=== PATIENT | male | born 1950 | race Caucasian/White ===

== ENCOUNTER 2016-08-15 10:40 | Emergency (ER) | payer OTHER ==
[2016-08-15] MEDS ORDERED: HYDROmorphone HCL/PF 1 MG/ML DISP.SYRIN ONE (10:51)
[2016-08-15] MEDS: ASPIRIN 81 MG CHEW TAB PO ONE (11:05)
[2016-08-15] MEDS: HYDROmorphone HCL/PF 1 MG/ML DISP.SYRIN IVP ONE ×2 (11:05→12:43)
[2016-08-15 11:09] LABS: BASOPHILS % 0.4 (0.0-1.5); EOSINOPHILS % 2.1 % (0.0-6.8); LYMPHOCYTES # 1.6 # k/uL (0.6-4.0); MEAN CORPUSCULAR HEMOGLOBIN 30.9 pg (28.0-34.0); MONOCYTES # 0.3 # k/uL (0.0-0.9); NEUTROPHILS # 4.8 # k/uL (1.4-7.7)
[2016-08-15 11:22] LABS: eGFR (African) > 60; eGFR (Non-African) > 60
--- NOTE | 2016-08-15 12:52 | ED Physician Documentation ---
Chest Pain - HISTORIAN Historian: patient - HPI Stated Complaint: Reproducible Chest Pain Chief Complaint: Chest Pain Additional Information: huts to inspire, move, eminates from mid back Onset: days ago (7) Timing: sudden onset, still present Duration: constant Last known Well Date: 08/09/16 Last Known Well Time: 12:00 Context: other (constatnt) Severity: severe Quality: sharp Front/Back of Body, Lg (Color): 1 - pain 2 - pain Chest Pain Radiation: back Chest Pain Signs/Symptoms: denies: nausea, vomiting, diaphoresis, cool extremities, dizziness, dyspnea, tachypnea, tachycardia, hypotension, palpitations, weakness Worsened By: deep breaths, exertion Relieved By: nothing Further Comments: no - ROS CONST: none MS/LYMPH: none GI/: none EYES/ENT: none SKIN/ENDO: none NEURO/PSYCH: none - PAST HX [place] risk factors: hypertension, hyperlipidemia, other (heart disease) TAD/AAA risk factors: none Neuro deficit: none GI disease: none Lung disease: none Surgeries/Procedures: cholecysectomy Immunizations: referred to PCP Allergies/Adverse Reactions: Allergies Allergy/AdvReac Type Severity Reaction Status Date / Time No Known Allergies Allergy Verified 08/15/16 10:47 Home Medications: Ambulatory Orders Medication Instructions Recorded Amitriptyline HCl 50 mg PO HS 08/15/16 Cholecalciferol [Vitamin D-3] 1,000 unit PO DAILY 08/15/16 Gemfibrozil [Lopid] 300 mg PO BID 08/15/16 Lisinopril [Zestril] 40 mg PO DAILY 08/15/16 Metformin HCl [Metformin HCl ER] 1,000 mg PO BID 08/15/16 Naproxen [Naprosyn] 500 mg PO BID PRN 08/15/16 [place]-3 Fatty Acids/Fish Oil [Ra 1 cap PO DAILY 08/15/16 Fish Oil 1,000 mg Softgel] Omeprazole [Prilosec] 20 mg PO AM 08/15/16 Pregabalin [Lyrica] 225 mg PO BID 03/09/17 amLODIPine BESYLATE [Norvasc] 5 mg PO 0900 08/15/16 gliPIZIDE [Glucotrol] 10 mg PO BID 08/15/16 - SOCIAL HX Smoking History: non-smoker Alcohol Use: none Drug Use: none - FAMILY HX Family HX: none - VITAL SIGNS Vital Signs: Vital Signs Temp Pulse Resp BP Pulse Ox 98.1 F 88 26 H 155/84 99 08/15/16 10:40 08/15/16 11:31 08/15/16 10:40 08/15/16 10:40 08/15/16 11:31 - REVIEWED ASSESSMENTS Nursing Assessment Reviewed: Yes Vitals Reviewed: Yes Progress - Results/Orders Results/Orders: chest pain workup ordered - Progress Progress: pt. given dilaudid 1 mg ivp x 2 each time with resolution of pain Critical Care Note - Critical Care Note Total Time (mins): 0 ED Results Lab/Radiology - Lab Results Lab Results: Lab Results 08/15/16 08/15/16 08/15/16 11:05 11:05 11:05 WBC 7.00 K/ul K/ul (4.00-12.00) RBC 4.55 M/ul M/ul (3.90-5.20) Hgb 14.0 g/dL g/dL (12.0-18.0) Hct 40.9 % % (37.0-53.0) MCV 90.0 fl fl (80.0-100.0) MCH 30.9 pg pg (28.0-34.0) MCHC 34.3 g/dL g/dL (30.0-36.0) RDW 13.7 % % (11.3-14.3) Plt Count 131 K/mm3 K/mm3 (130-400) Neut % (Auto) 69.7 % % (39.0-79.0) Lymph % (Auto) 22.7 % % (16.0-50.0) [place] % (Auto) 4.0 % % (0.0-11.0) Eos % (Auto) 2.1 % % (0.0-6.8) Baso % (Auto) 0.4 (0.0-1.5) Neut # 4.8 # k/uL # k/uL (1.4-7.7) Lymph # 1.6 # k/uL # k/uL (0.6-4.0) [place] # 0.3 # k/uL # k/uL (0.0-0.9) Eos # 0.2 # k/uL # k/uL (0.0-0.6) Baso # 0.0 # k/uL # k/uL (0.0-0.5) Reactive Lymphs % 1.1 % % (0.0-5.0) Reactive Lymphs # 0.1 # k/uL # k/uL (0.0-0.8) Sodium 136 mmol/L mmol/L (136-145) Potassium 3.9 mmol/L mmol/L (3.5-5.0) Chloride 100 mmol/L mmol/L (98-110) Carbon Dioxide 29 mmol/L mmol/L (20-32) BUN 23 mg/dL mg/dL (10-26) Creatinine 1.1 mg/dL mg/dL (0.4-1.5) Est GFR ( Amer) > 60 (60 - ) Est GFR (Non-Af Amer) > 60 (60 - ) Glucose 260 mg/dL H mg/dL (70-99) Calcium 9.5 mg/dL mg/dL (8.5-10.5) Total Bilirubin 0.4 mg/dL mg/dL (0.2-1.2) AST 66 U/L H U/L (0-41) ALT 88 U/L H U/L (0-45) Alkaline Phosphatase 62 U/L U/L (46-116) Troponin I < 0.03 ng/mL L ng/mL (0.03-0.06) Total Protein 7.2 g/dL g/dL (6.0-8.5) Albumin 4.4 g/dL g/dL (3.0-5.5) - Radiology Radiology Impressions: chest x-ray neg - Orders Orders: ED Orders Category Date Time Status Continuous EKG monitoring Q30M Care 08/15/16 11:01 Active Continuous Pulse Oximetry Q30M Care 08/15/16 11:[address] Saline Lock/IV NOW Care 08/15/16 11:01 Completed CBC/PLATELET/DIFF Routine Lab 08/15/16 11:05 Completed CMP Routine Lab 08/15/16 11:05 Completed TROPONIN I (cTnI) Stat Lab 08/15/16 11:05 Completed Aspirin Med 08/15/16 11:01 Discontinued 324 mg PO NOW ONE HYDROmorphone HCL/PF [Dilaudid] Med 08/15/16 10:51 Discontinued 1 mg .ROUTE .STK-MED ONE HYDROmorphone HCL/PF [Dilaudid] Med 08/15/16 11:01 Discontinued 1 mg IVP NOW ONE HYDROmorphone HCL/PF [Dilaudid] Med 08/15/16 12:35 Discontinued 1 mg IVP NOW ONE Oxygen Daily Oxygen 08/15/16 11:15 Ordered EKG WITH COMPARISON Stat Ther 08/15/16 11:01 Ordered Chest Pain Physical Exam - EXAM General Appearance: alert, moderate distress EENT: eye inspection normal, ENT inspection normal, pharynx normal, no signs of dehydration, MISTY, no nystagmus, TM's nml Neck: nml inspection, no carotid bruit Respiratory: no resp. distress, chest non-tender, nml breath sounds CVS: reg. rate & rhythm, no murmur, no gallop, no friction rub, pulses full, pulses equal, other (chest pain reproduceable with palpation) Abdomen: soft, no organomegaly, normal bowel sounds, no abdominal bruit, no distension, non-tender Skin: warm/dry, normal color Extremities: non-tender, normal range of motion, no evidence of injury, no edema Neuro: oriented X3, CN's nml as tested, motor nml, sensation nml, mood/affect nml, cognition normal Discharge Clincal Impression: Costochondritis Referrals: Primary Doctor,No [Primary Care Provider] - 2 Days Home Medications: Ambulatory Orders Amitriptyline HCl 50 mg PO HS 08/15/16 Cholecalciferol [Vitamin D-3] 1,000 unit PO DAILY 08/15/16 Gemfibrozil [Lopid] 300 mg PO BID 08/15/16 Lisinopril [Zestril] 40 mg PO DAILY 08/15/16 Metformin HCl [Metformin HCl ER] 1,000 mg PO BID 08/15/16 Naproxen [Naprosyn] 500 mg PO BID PRN 08/15/16 [place]-3 Fatty Acids/Fish Oil [Ra Fish Oil 1,000 mg Softgel] 1 cap PO DAILY 08/15 Omeprazole [Prilosec] 20 mg PO AM 08/15/16 Pregabalin [Lyrica] 225 mg PO BID 08/15/16 amLODIPine BESYLATE [Norvasc] 5 mg PO 0900 08/15/16 gliPIZIDE [Glucotrol] 10 mg PO BID 08/15/16 Comments: discharged with scripts for toradol and tizanidine 1 pill each 4x/day Condition: Stable Disposition: 01 HOME, SELF-CARE Decision to Admit: NO Decision Time: 12:50
[2016-08-15 13:29] VITALS: BP 134/82
== END 2016-08-15 13:05 | disposition home or self-care (01) ==
LOC: ED 10:40
DX: M94.0 Chondrocostal junction syndrome [Tietze] (principal)
CPT/HCPCS: 36415; 80053; 84484; 85025; 93005; J1170; 96374; 96376; 99283; S1016